=== PATIENT | male | born 1995 | race Caucasian/White ===

== ENCOUNTER 2025-08-03 10:53 | Emergency (ER) | payer OTHER, SELFPAY ==
[2025-08-03 10:54] VITALS: BP 125/91; PULSE 63; RESP 20; TEMP 36.8; O2SAT 97
[2025-08-03 10:58] VITALS: BMI 36.8
--- NOTE | 2025-08-03 11:03 | CT_ITS ---
PROCEDURE: SPINE CERVICAL WITHOUT CONTRAS 08/03/2025 REASON FOR EXAM: TRAUMA TECHNIQUE: Procedure Code: CTSPC Modality: CT Procedure: SPINE CERVICAL WITHOUT CONTRAS Coronal and Sagittal reconstruction series were provided. One or more dose reduction techniques were used (e.g., Automated exposure control, adjustment of the mA and/or kV according to patient size, use of iterative reconstruction technique. RADIATION DOSE SUMMARY: CTDlvol: 44.99 mGy DLP: 3958.88 mGycm COMPARISON: None FINDINGS: Mild reversal of the cervical lordosis at C2-C3 may be positional in nature. Otherwise, alignment is within normal limits. Vertebrae: Vertebral body heights are maintained. No evidence of acute fracture or subluxation. Soft Tissues: There is no prevertebral soft tissue swelling. Other: C1-2: Within normal limits C2-3: Unremarkable. No spinal canal or neural foraminal narrowing. C3-4: Mild uncovertebral hypertrophy. The spinal canal is patent. No significant neural foraminal narrowing. C4-5: Mild uncovertebral hypertrophy. Spinal canal is patent. Mild right neural foraminal narrowing. Left neural foramen is patent. C5-6: Mild uncovertebral hypertrophy. The spinal canal is patent. Mild right neural foraminal narrowing. Left neural foramen is patent. C6-7: Mild uncovertebral hypertrophy. Mild left facet arthropathy. Mild left neural foraminal narrowing. Right neural foramen is patent. Spinal canal is patent. C7-T1: No significant disc bulge, bony hypertrophy. The spinal canal and neural foramina are patent. CT/Spine Cervical without Contras IMPRESSION: No acute fracture or subluxation in the cervical spine Reading Location: [id number]
--- NOTE | 2025-08-03 11:03 | CT_ITS ---
PROCEDURE: CT CHEST, ABD, PEL W/CONTRAST 08/03/2025 REASON FOR EXAM: LARGE UTILITY POLE STRUCK HEAD, BACK PAIN TECHNIQUE: Chest, abdomen and pelvis CT with intravenous contrast. Coronal and Sagittal reconstruction series were provided. One or more dose reduction techniques were used (e.g., Automated exposure control, adjustment of the mA and/or kV according to patient size, use of iterative reconstruction technique. PATIENT PREPARATION: Per protocol ORAL CONTRAST TYPE: None. CONTRAST: Isovue 370 VOLUME: 100mL RADIATION DOSE SUMMARY: CTDlvol: 27 mGy DLP: 3958.88 mGycm COMPARISON: None FINDINGS: CT CHEST: Hardware: None Lymph nodes: No suspicious lymph nodes are seen. Heart and Vasculature: Heart is nonenlarged. Lungs and Airways: Unremarkable Pleura: No pleural effusion. Bones: Unremarkable CT ABDOMEN/PELVIS: Liver: Unremarkable Gallbladder: Questionable tiny gallbladder polyp adherent to the gallbladder wall. Spleen: Normal size. Pancreas: Normal size without evidence of mass surrounding inflammation or ductal dilation. Adrenals: Left adrenal nodule consistent with an adenoma Kidneys: Normal renal sizes. No hydronephrosis. Bladder: Urinary bladder is distended. Small right inguinal hernia containing fat. Bowel: Unremarkable gas pattern. Appendix: Unremarkable Lymph nodes: Unremarkable. Vasculature: The abdominal aorta and IVC are normal. Peritoneum / Retroperitoneum: Unremarkable Bones: Unremarkable CT/CT Chest, Abd, Pel w/Contrast IMPRESSION: No acute abnormality is seen. Questionable tiny gallbladder polyp. Reading Location: [id number]
--- NOTE | 2025-08-03 11:03 | EKG12_ITS ---
Test Reason : Blood Pressure : */* mmHG Vent. Rate : 66 BPM Atrial Rate : 66 BPM P-R Int : 154 ms QRS Dur : 98 ms QT Int : 400 ms P-R-T Axes : 71 18 26 degrees QTcB Int : 419 ms Normal sinus rhythm Normal ECG Baseline artifact Confirmed by Yair Saxena ([id number]), news assignment editor SHELBY WYNNE ([id number]) on 08/04/2025 10:35:11 AM Referred By: Confirmed By: Yair Saxena
--- NOTE | 2025-08-03 11:03 | CT_ITS ---
PROCEDURE: BRAIN/HEAD WITHOUT CONTRAST 08/03/2025 REASON FOR EXAM: TRAUMA Left-sided neck pain. TECHNIQUE: Procedure Code: CTBR Modality: CT Procedure: BRAIN/HEAD WITHOUT CONTRAST Coronal and Sagittal reconstruction series were provided. One or more dose reduction techniques were used (e.g., Automated exposure control, adjustment of the mA and/or kV according to patient size, use of iterative reconstruction technique. RADIATION DOSE SUMMARY: CTDlvol: 44.99 mGy DLP: 863.6 mGycm COMPARISON: None FINDINGS: Brain: Normal CSF Spaces: Normal Sinuses/Mastoids: Clear at visualized levels Bones: Unremarkable CT/Brain/Head without Contrast IMPRESSION: NORMAL NONCONTRAST HEAD CT. Reading Location: [id number]
--- NOTE | 2025-08-03 11:05 | EDS_ITS ---
HPI History of Present Illness Chief Complaint: Trauma Narrative Narrative: Patient is a 29-year-old male with a past medical history of ADD who presented to the emergency department with a chief complaint of head injury while at work. 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 He states he did not pass out he remembers the entire event. Patient states he is unsure when his last tetanus shot was. Patient did note that he had a hard hat on. [facility] Medical History (Updated 08/03/25 @ 13:[address] Jose Martinez DO) ADD (attention deficit disorder) Home Medications ?Medication ?Instructions ?Recorded ?Last Taken ?Type methylphenidate HCl 72 mg 72 mg PO QDAY #30 tabs 02/10 Unknown Rx tablet,extended release 24 hr cyclobenzaprine 10 mg tablet 10 mg PO TID PRN muscle s pasm #30 08/03/25 Unknown Rx tabs Allergy/AdvReac Type Severity Reaction Status Date / Time No Known Allergies Allergy Verified 08/03/25 11:00 Family History Grandmother Diabetes Aunt Diabetes Social History Smoking Status: Never smoker alcohol intake: never substance use type: does not use what type of physical activity do you participate in: none ROS ROS ED ROS Narrative Constitutional: Denies fevers, chills, headaches Eyes: Denies double vision Cardiovascular: Denies chest pain Respiratory: Denies shortness of breath Abdomen: Denies any abdominal pain nausea vomit diarrhea : Denies urinary symptoms Neurological: Denies any numbness, weakness, tingling Musculoskeletal: Complains of mid to low back pain Skin: Complains of a cut to the right side of the forehead EXAM Physical Exam Narrative Exam Narrative: General: Patient was lying in bed did not appear to be in acute distress Head: Patient has a proximately 3-1/2 to 4 cm laceration over the right side of his head no active bleeding, normocephalic Eyes, ears, nose, throat: PERRL bilaterally, EOMI bilaterally, no conjunctival injection noted no raccoon eyes no Diaz sign no nasal septal hematomas noted bilaterally Neck: Soft, supple, trachea midline, cervical collar in place Cardiovascular: Regular rate and rhythm Respiratory: Clear to auscultation bilaterally Abdomen: Soft, nondistended, no tenderness palpation Musculoskeletal: Patient has tenderness palpation over the distal humerus and around the right elbow region although bony prominences palpated no pain elicited Extremities: +5/5 strength noted in the bilateral upper and lower extremities, radial pulses +2/4 in the bilateral extremities Neurological: Patient is following commands that he was at [facility] year is 2024 sensation grossly intact NIH is 0 GCS 15 Skin: Warm, dry, intact see head Const Vital Signs: 08/03/25 10:54 08/03/25 11:12 08/03/25 11:53 Temperature 98.2 F 98.7 F Temperature Source Oral Oral Pulse Rate 63 80 Respiratory Rate 20 H 22 H Respiratory Effort Normal Respiratory Depth Normal Respiratory Pattern Normal Blood Pressure 125/91 H 134/87 H Blood Pressure Mean 102 102 Pulse Ox 97 100 Oxygen Delivery Method Room Air Room Air Room Air 08/03/25 12:00 Temperature 98.4 F Temperature Source Oral Pulse Rate 73 Respiratory Rate 15 Respiratory Effort Respiratory Depth Respiratory Pattern Blood Pressure 128/81 H Blood Pressure Mean 96 Pulse Ox 100 Oxygen Delivery Method Room Air MDM MDM MDM Narrative Medical decision making narrative: Patient is a 29-year-old male who presented to the emergency department after close head injury without loss consciousness, back pain. On the differential diagnose includes but not limited to intracranial hemorrhage, cervical spine fracture, Chance fracture, compression fracture of the thoracic lumbar spine. Once workup is obtained reviewed he will be reevaluated. Patient's tetanus shot will be updated he states that he does not want a thing for pain at this point in time. Patient's last CBC reviewed and showed no evidence of leukocytosis white blood count normal 7.4, hemoglobin stable 13.9, plate count 248. Patient's INR normal at 1, sodium normal 140, Tessman 3.9, creatinine 0.9. Patient's AST ALT normal at 29 and 34 respectively.Patient was reviewed by myself by radiology and showed no acute fracture or dislocation. Patient elbow x-ray reviewed by myself no acute fracture or dislocation. Patient reports he had not had tremendous reviewed showed no acute findings. Patient CT spine showed no acute fracture or subluxation cervical spine CT chest abdomen pelvis with IV contrast reviewed and showed no acute or maladies. Patient had a laceration repaired here in the emergency department see procedure note for separate details. He was advised to follow-up with the Workmen's Comp. and return with worsening symptoms or any concerns. He will be given prescription for cyclobenzaprine he was advised to not operate anything under the influence this medication. He is agreeable this plan all question concerns answered discharged home in stable condition Lab Data Labs: Laboratory Results - last 24 hr 08/03/25 11:14 WBC 7.4 RBC 4.84 Hgb 13.9 Hct 40.6 MCV 83.9 MCH 28.7 MCHC 34.2 RDW Std Deviation 37.3 RDW Coeff of Osmany 12.4 Plt Count 240 MPV 8.4 Immature Gran % (Auto) 0.700 Neut % (Auto) 54.7 Lymph % (Auto) 35.0 Sac % (Auto) 6.9 Eos % (Auto) 2.3 Baso % (Auto) 0.4 Absolute Neuts (auto) 4.0 Absolute Lymphs (auto) 2.58 Nucleated RBC % 0 PT 13.6 INR 1.0 APTT 27.8 Sodium 140 Potassium 3.9 Chloride 106 Carbon Dioxide 23.0 Anion Gap 10 BUN 18 Creatinine 0.97 Estim Creat Clear Calc 150.50 Est GFR (MDRD) Non-Af 110 BUN/Creatinine Ratio 18.9 Glucose 122 H Calcium 8.8 Total Bilirubin 0.33 Direct Bilirubin 0.17 AST 29 ALT 34 Alkaline Phosphatase 63 Total Protein 6.5 Albumin 4.4 Globulin 2.1 L Radiography Diagnostic Testing: Clinical Impression(s) from Imaging Studies Brain CT 08/03/25 11:03 IMPRESSION: NORMAL NONCONTRAST HEAD CT. Reading Location: [id number] Cervical Spine CT 08/03/25 11:03 IMPRESSION: No acute fracture or subluxation in the cervical spine Reading Location: [id number] Chest/Abdomen/Pelvis CT 08/03/25 11:03 IMPRESSION: No acute abnormality is seen. Questionable tiny gallbladder polyp. Reading Location: [id number] Elbow X-Ray 08/03/25 11:30 IMPRESSION: No fracture or dislocation is identified. Reading Location: [facility] Humerus X-Ray 08/03/25 11:30 IMPRESSION: NO ACUTE FRACTURE OR DISLOCATION. Reading Location: [id number] Discharge Plan Triage Chief Complaint: Trauma ED Provider: Jose Martinez Dx/Rx/DC Orders Clinical Impression: Closed head injury without loss of consciousness, Laceration of head Prescriptions: New cyclobenzaprine 10 mg tablet 10 mg PO TID PRN (Reason: muscle spasm) Qty: 30 0RF No Action methylphenidate HCl 72 mg tablet extended release 24hr 72 mg PO QDAY Qty: 30 0RF Stand Alone Forms: Work Status Form Primary Care Provider: Skye Gruber NP Referrals: [facility] [Group of Physicians, Medical] Arley Sandoval DO [Med Staff - Insurance Underwriting Assistant, Internal Medicine] Activity Restrictions/Additional Instructions: Follow-up with Workmen's Comp. in the outpatient setting. Have your sutures removed in approximately 5 to 7 days. You can shower and let warm water run over these do not scrub at them and do not soak them. Rotate Tylenol and ibuprofen [id number] for mild to moderate pain when you do this you can take something every 3 hours for pain with a max dose Tylenol in 24 hours 4000 mg max dose of ibuprofen in 24 hours 3200 mg. Use muscle relaxer as prescribed do not operate anything under the influence this medication is make you sleepy or drowsy. Print Language: [place] Citizen Disposition Disposition: Home, Self Care
[2025-08-03] MEDS: 0.9% Normal Saline (1000mL) 1,000 ML 999 ML IV (11:11)
[2025-08-03 11:25] LABS: Hematocrit 40.6 % (40-54); Hemoglobin 13.9 g/dL (13.0-16.5); Immature Granulocytes Count 0.050 X10^3/uL (0.0-0.0); Mean Corp Hgb Conc 34.2 g/dL (32-36); Mean Corpuscular Volume 83.9 fL (80-94); Mean Platelet Vol. 8.4 fl (6.2-12.0); NRBC Flagged by Analyzer 0 % (0-5); Platelet Count 240 K/mm3 (150-450); RBC Distribution Width CV 12.4 % (11.6-14.6); RBC Distribution Width SD 37.3 fl (35.1-43.9); Red Blood Count 4.84 M/mm3 (4.6-6.2); White Blood Count 7.4 K/mm3 (4.4-11.0)
--- NOTE | 2025-08-03 11:30 | RAD_ITS ---
PROCEDURE: ELBOW MIN 3 VIEWS 08/03/2025 REASON FOR EXAM: TRAUMA TECHNIQUE: Procedure Code: RADEL Modality: DX Procedure: ELBOW MIN 3 VIEWS Right elbow three views COMPARISON: None FINDINGS: A venous access catheter is noted. There is no fracture or dislocation identified. There is no visible effusion. Mineralization is normal. No soft tissue abnormality is identified. RAD/Elbow min 3 Views IMPRESSION: No fracture or dislocation is identified. Reading Location: [facility]
--- NOTE | 2025-08-03 11:30 | RAD_ITS ---
PROCEDURE: HUMERUS MIN 2 VIEWS 08/03/2025 REASON FOR EXAM: TRAUMA TECHNIQUE: Procedure Code: RADHUM Modality: DX Procedure: HUMERUS MIN 2 VIEWS Laterality: Left humerus. COMPARISON: None FINDINGS: Bones: No fracture is seen. Joints: Normal alignment at the shoulder and elbow. Soft tissues: Soft tissues are unremarkable. Other: RAD/Humerus min 2 Views IMPRESSION: NO ACUTE FRACTURE OR DISLOCATION. Reading Location: [id number]
[2025-08-03 11:36] LABS: Prothrombin Time (Protime)PT. 13.6 SECONDS (11.7-14.9)
[2025-08-03 11:37] LABS: Partial Thromboplast Time 27.8 Seconds (24.1-36.2)
[2025-08-03 11:49] LABS: AST(SGOT) 29 U/L (<=37); Alanine Aminotransfer ALT/SGPT 34 U/L (<=46); Albumin, Serum 4.4 g/dL (3.5-5.0); Alkaline Phosphatase 63 U/L (40-129); Anion Gap 10 (5-15); BUN 18 mg/dL (4-19); BUN/Creat Ratio 18.9 RATIO (10-20); Bilirubin, Direct 0.17 mg/dL (0.00-0.30); Calcium,Total 8.8 mg/dL (7.6-11.0); Carbon Dioxide 23.0 mmol/L (21.0-32.0); Chloride 106 mmol/L (98-108); Estimated Creatinine Clearance 150.50 ml/min (50-250); Globulin 2.1 g/dL (2.2-4.2); Glucose 122 mg/dL (70-99); Potassium 3.9 mmol/L (3.3-5.1)
[2025-08-03 11:53] VITALS: BP 134/87; PULSE 80; RESP 22; TEMP 37.1; O2SAT 100
[2025-08-03 12:00] VITALS: BP 128/81; PULSE 73; RESP 15; TEMP 36.9; O2SAT 100
[2025-08-03] MEDS: Lidocaine 1% (20 ml mdv) 20 ML Vial 10 ML INFILT (13:10)
[2025-08-03] MEDS: Orphenadrine 60 MG/2 ML Ampul IV (13:10)
[2025-08-03 14:00] VITALS: BP 120/71; PULSE 71; RESP 17; TEMP 36.7; O2SAT 100
== END 2025-08-03 14:05 | disposition home or self-care (01) ==
PROVIDERS: Emergency Provider Emergency Medicine; PCP Registered Nurse; Visit Provider Emergency Medicine
DX: S01.91XA Laceration without foreign body of unspecified part of head, initial encounter (principal); Y99.0 Civilian activity done for income or pay; F98.8 Other specified behavioral and emotional disorders with onset usually occurring in childhood and adolescence; M25.521 Pain in right elbow; R29.700 NIHSS score 0; Z23 Encounter for immunization; W20.8XXA Other cause of strike by thrown, projected or falling object, initial encounter
CPT/HCPCS: 12002; 70450; 71260; 72125; 73060; 73080; 74177; 80048; 80076; 85025; 85610; 85730; 93005; 96361; 96372; 96374; 99285; Q9967; A4216